=== PATIENT | female | born 1995 | race African-American/Black ===

== ENCOUNTER 2024-01-23 10:56 | Emergency (ER) | payer OTHER ==
[~2024-01-23] VITALS: Ht 165.1 cm; Wt 70.0 kg
[2024-01-23 11:02] VITALS: TEMP 98.4; O2SAT 100
[2024-01-23 13:46] VITALS: BP 102/67; PULSE 78; RESP 18; O2SAT 100
== END 2024-01-23 13:49 | disposition home or self-care (01) ==
LOC: ER 10:56
DX: I10 Essential (primary) hypertension (principal)
CPT/HCPCS: 82962; 93005; 99283